=== PATIENT | male | born 1950 | race Two or more races ===

== ENCOUNTER 2017-01-19 12:48 | Emergency (ER) | payer OTHER ==
[~2017-01-19] VITALS: Ht 185.4 cm; Wt 156.0 kg
[2017-01-19 13:53] LABS: Basophils # (auto) 0 uL; Basophils % (auto) 0.3 % (0.0-2.0); Eosinophils # (auto) 0.1 uL; Eosinophils % (auto) 0.7 % (0.0-7.0); Hematocrit 39.4 % (41.0-53.0); Hemoglobin 12.6 g/dL (13.5-17.5); Lymphocytes # (auto) 1.7 uL; Lymphocytes % (auto) 21.2 % (10.0-50.0); Mean Corpuscular Hemoglobin 27.8 pg (28.0-32.0); Mean Corpuscular Volume 86.8 fL (80.0-100.0); Mean Platelet Volume 10.1 fL (7.4-10.4); Monocytes # (auto) 0.8 uL; Neutrophils # (auto) 5.4 uL; Neutrophils % (auto) 67.8 % (37.0-80.0); Platelet Count (auto) 250 10^3/uL (140-450); Red Cell Distribution Width 16.4 % (11.6-16.0)
[2017-01-19 14:22] LABS: Albumin 3.5 g/dL (3.4-5.0); BUN/Creatinine Ratio 20.6; Bilirubin, Total 2.7 mg/dL (0.2-1.0); Calcium 8.1 mg/dL (8.5-10.1); Magnesium 1.9 mg/dL (1.6-2.6); Potassium 3.6 mmol/L (3.5-5.1); Total Protein 7.2 g/dL (6.4-8.2)
[2017-01-19 14:29] LABS: B-Type Natriuretic Peptide 1766.97 pg/mL (0-100)
[2017-01-19] MEDS ORDERED: SODIUM CHLORIDE 0.9% 1,000 ML IV ONE (15:44)
[2017-01-19] MEDS ORDERED: SPIRONOLACTONE 25 MG TAB PO ONE (15:45)
[2017-01-19] MEDS ORDERED: FUROSEMIDE 40 MG/4 ML VIAL IV ONE (15:45)
[2017-01-19 21:40] VITALS: BP 140/80
== END 2017-01-19 21:54 | disposition home or self-care (01) ==
LOC: ER 12:48
DX: I11.0 Hypertensive heart disease with heart failure (principal); E80.6 Other disorders of bilirubin metabolism; I25.2 Old myocardial infarction; I25.10 Atherosclerotic heart disease of native coronary artery without angina pectoris; E78.5 Hyperlipidemia, unspecified; I50.9 Heart failure, unspecified; R06.00 Dyspnea, unspecified; Z90.49 Acquired absence of other specified parts of digestive tract; Z98.61 Coronary angioplasty status
CPT/HCPCS: 36415; 71020; 80053; 83735; 83880; 84443; 84484; 85025; 93005; 94761; 96361; 96374; 99285; J1940; J7030

== ENCOUNTER 2017-02-24 12:39 | Emergency (ER) | payer OTHER ==
[~2017-02-24] VITALS: Ht 182.9 cm; Wt 117.9 kg
[2017-02-24 13:12] LABS: Basophils # (auto) 0 uL; Basophils % (auto) 0.4 % (0.0-2.0); CONDITION Y; DEFINITIVE SEE PRINTOUT; Eosinophils # (auto) 0 uL; Hematocrit 52.1 % (41.0-53.0); Hemoglobin 17.1 g/dL (13.5-17.5); Lymphocytes % (auto) 9.6 % (10.0-50.0); Mean Corpuscular Hemoglobin 27.9 pg (28.0-32.0); Mean Corpuscular Hgb Conc. 32.9 g/dL (32.0-36.0); Mean Corpuscular Volume 84.7 fL (80.0-100.0); Mean Platelet Volume 11.9 fL (7.4-10.4); Monocytes # (auto) 0.5 uL; Monocytes % (auto) 4.3 % (0.0-12.0); Neutrophils # (auto) 9.2 uL; Neutrophils % (auto) 85.7 % (37.0-80.0); Platelet Count (auto) 199 10^3/uL (140-450); Red Cell Distribution Width 18.8 % (11.6-16.0); SUSPECT SEE PRINTOUT; White Blood Cell 10.7 10^3/uL (4.4-10.8)
[2017-02-24 13:18] LABS: INR 1.11 (0.9-1.15); Partial Thromboplastin Time 25.9 sec (22.64-33.71); Prothrombin Time 12.1 sec (9.37-12.3)
[2017-02-24 13:26] LABS: Albumin 4.1 g/dL (3.4-5.0); Anion Gap 14 (5-15); Aspartate Aminotransferase 32 U/L (15-37); BUN/Creatinine Ratio 28.8; Blood Urea Nitrogen 46 mg/dL (7-18); Calcium 9.5 mg/dL (8.5-10.1); Carbon Dioxide 16 mmol/L (21-32); Chloride 106 mmol/L (98-107); GFR African American 56 mL/min; GFR Non-African American 46 mL/min; Glucose 141 mg/dL (74-106); Potassium 4.6 mmol/L (3.5-5.1); Sodium 136 mmol/L (136-145)
[2017-02-24 13:31] LABS: Alkaline Phosphatase 471 U/L (45-117); Bilirubin, Total 1.8 mg/dL (0.2-1.0); Total Protein 9.1 g/dL (6.4-8.2)
[2017-02-24 14:02] LABS: B-Type Natriuretic Peptide 736.16 pg/mL (0-100); Temperature: 23.5 C (20.0-25.0)
[2017-02-24 14:41] VITALS: BP 116/79
[2017-02-24] MEDS ORDERED: FUROSEMIDE 20 MG/2 ML VIAL IV ONE (14:45)
[2017-02-24] MEDS ORDERED: DOCUSATE SOD 100 MG CAP PO ONE (15:00)
== END 2017-02-24 16:53 | disposition home or self-care (01) ==
LOC: EDBD 12:39 → ER 12:46
DX: K57.90 Diverticulosis of intestine, part unspecified, without perforation or abscess without bleeding (principal); I11.0 Hypertensive heart disease with heart failure; I50.9 Heart failure, unspecified; Z79.899 Other long term (current) drug therapy; E78.5 Hyperlipidemia, unspecified; I25.2 Old myocardial infarction; Z90.49 Acquired absence of other specified parts of digestive tract; Z98.61 Coronary angioplasty status
CPT/HCPCS: 36415; 71010; 74176; 80053; 83880; 84484; 85025; 85610; 85730; 93005; 96374; 99285; J1940

== ENCOUNTER 2017-03-06 00:20 | Emergency (ER) | payer OTHER ==
[~2017-03-06] VITALS: Ht 182.9 cm; Wt 117.9 kg
[2017-03-06 00:29] VITALS: BP 0/0
== END 2017-03-06 05:05 | disposition expired ==
LOC: ER 00:25
DX: I46.9 Cardiac arrest, cause unspecified (principal); I50.9 Heart failure, unspecified; E78.5 Hyperlipidemia, unspecified; I11.0 Hypertensive heart disease with heart failure; I25.2 Old myocardial infarction; Z90.49 Acquired absence of other specified parts of digestive tract; Z98.61 Coronary angioplasty status; Z68.35 Body mass index [BMI] 35.0-35.9, adult; E66.9 Obesity, unspecified; Z79.82 Long term (current) use of aspirin; Z88.8 Allergy status to other drugs, medicaments and biological substances
CPT/HCPCS: 92950